=== PATIENT | female | born 1945 | race Caucasian/White ===

== ENCOUNTER 2022-11-28 10:27 | Emergency (ER) | payer OTHER ==
[2022-11-28 10:59] VITALS: BMI 20.8
[2022-11-28] MEDS ORDERED: LORazepam 2 MG/ML SDV VIAL IM ONE (11:15)
[2022-11-28 15:53] VITALS: BP 137/91; PULSE 94; RESP 18; TEMP 98.4
== END 2022-11-28 17:10 ==
LOC: JER 10:27
PROC: 3E0233Z Introduction of Anti-inflammatory into Muscle, Percutaneous Approach (ICD-10-PCS; principal; 2022-11-28)
DX: F03.911 Unspecified dementia, unspecified severity, with agitation (principal); W06.XXXA Fall from bed, initial encounter
CPT/HCPCS: 70450-TC; 71045-TC-FY; 72170-TC-FY; 99284-25